=== PATIENT | male | born 1995 | race Caucasian/White ===

== ENCOUNTER 2021-09-22 17:54 | Emergency (ER) | payer SELFPAY ==
[~2021-09-22] VITALS: Ht 165.1 cm; Wt 64.0 kg
[2021-09-22] MEDS ORDERED: HYDROCODONE/ACETAMINOPHEN 5/325MG TABLET PO ONE (20:15)
[2021-09-22 20:20] VITALS: BP 126/77
== END 2021-09-22 20:20 | disposition home or self-care (01) ==
LOC: ER 17:54
DX: R51.9 Headache, unspecified (principal)
CPT/HCPCS: 70486; 99284